=== PATIENT | male | born 1985 | race Caucasian/White ===

== ENCOUNTER 2020-06-06 00:34 | Observation (INO) | payer OTHER ==
[2020-06-06] MEDS ORDERED: IBUPROFEN 800 MG TAB PO STA (01:00)
[2020-06-06 01:02] LABS: Basophils # (A) 0.1 k/uL (0-0.2); Basophils % (A) 1 %; Eosinophils # (A) 0.7 k/uL (0-0.7); Eosinophils % (A) 7 %; HCT 42.1 % (39.0-53.0); HGB 14.3 gm/dL (13.0-17.5); Lymphocytes # (A) 2.6 k/uL (1.0-4.8); Lymphocytes % (A) 29 %; MCH 30.8 pg (25.0-35.0); MCV 90.7 fL (80.0-100.0); Mean Platelet Volume 7.8; Monocytes # (A) 0.5 k/uL (0-1.0); Monocytes % (A) 6 %; Neutrophils # (A) 4.9 k/uL (1.3-7.7); Neutrophils % (A) 55 %; Platelet Count 253 k/uL (150-450); RBC 4.64 m/uL (4.30-5.90); RDW 12.9 % (11.5-15.5)
--- NOTE | 2020-06-06 01:05 | ED ---
Chest Pain HPI - General Chief Complaint: Chest Pain Stated Complaint: Chest Pain Time Seen by Provider: 06/06/20 00:45 Source: patient, EMS Mode of arrival: EMS - History of Present Illness Initial Comments: This patient is 34-year-old man who comes to be evaluated for left-sided chest pain that started in the afternoon possibly early evening. He states that it is a squeezing, was moderate intensity. The pain began to radiate to his left bicep area and then the staff at [facility] called EMS to have him transported here. He had been given aspirin. When EMS gave nitroglycerin, the chest pain subsided. Patient states he is currently symptom-free. No associated symptoms. He had not noted worsening factors. Patient smokes approximately half pack of cigarettes per day. There is family cardiac history. He has not had previous cardiac workup. MD Complaint: chest pain Onset/Timin -: hour(s) Onset: during rest Pain Location: left chest Pain Radiation: LUE Severity: moderate Quality: other (Squeezing) Consistency: constant Improves With: nitroglycerin Worsens With: nothing Treatments Prior to Arrival: aspirin, nitroglycerin, oxygen - Related Data Allergies Allergy/AdvReac Type Severity Reaction Status Date / Time No Known Allergies Allergy Verified 06/06/20 00:43 Review of Systems ROS Statement: Those systems with pertinent positive or pertinent negative responses have been documented in the HPI. ROS Other: All systems not noted in ROS Statement are negative. Constitutional: Denies: fever, chills Respiratory: Denies: cough, dyspnea Cardiovascular: Reports: chest pain. Denies: palpitations, orthopnea, edema, syncope Gastrointestinal: Denies: abdominal pain, nausea, vomiting, diarrhea Genitourinary: Denies: dysuria, hematuria Musculoskeletal: Denies: back pain Skin: Denies: rash Neurological: Denies: headache, weakness, numbness EKG Findings - EKG Results: EKG: interpreted by MARGUERITE WNL, sinus rhythm (Rate 77 bpm), normal axis, normal QRS, normal ST/T, no acute changes - NH, Pacemaker, Normal: Normal tracing: normal tracing Past Medical History Past Medical History: Hypertension, Seizure Disorder History of Any Multi-Drug Resistant Organisms: None Reported Past Surgical History: Orthopedic Surgery Past Psychological History: Anxiety, Depression, PTSD Smoking Status: Current every day smoker Past Alcohol Use History: Abuse, Daily, Heavy Past Drug Use History: Cocaine, Marijuana General Exam Limitations: no limitations, language barrier General appearance: alert, in no apparent distress Head exam: Present: atraumatic, normocephalic Eye exam: Present: normal appearance. Absent: scleral icterus, conjunctival injection ENT exam: Present: normal oropharynx Neck exam: Present: normal inspection Respiratory exam: Present: normal lung sounds bilaterally. Absent: respiratory distress, wheezes, rales, rhonchi, stridor Cardiovascular Exam: Present: regular rate, normal rhythm, normal heart sounds. Absent: systolic murmur, diastolic murmur, rubs, gallop GI/Abdominal exam: Present: soft. Absent: distended, tenderness, guarding, rebound, rigid, mass Extremities exam: Present: normal inspection, normal capillary refill. Absent: pedal edema, calf tenderness Back exam: Present: normal inspection Neurological exam: Present: alert Skin exam: Present: warm, dry, intact, normal color. Absent: rash Course Vital Signs 06/06/20 06/06/20 06/06/20 00:35 00:42 01:07 Temperature 98.2 F Pulse Rate 71 71 Pulse Rate [ 76 Chemical Dependency Therapist ] Respiratory 18 18 Rate Blood Pressure 98/73 117/63 Blood Pressure [Right Arm] O2 Sat by Pulse 93 L 96 Oximetry 06/06/20 06/06/20 06/06/20 01:45 02:17 02:40 Temperature 97.6 F Pulse Rate 66 Pulse Rate [ 65 65 Chemical Dependency Therapist ] Respiratory 18 16 16 Rate Blood Pressure 107/69 Blood Pressure 111/62 [Right Arm] O2 Sat by Pulse 98 96 Oximetry Chest Pain MDM - MDM This patient is 34-year-old man presenting with chest pain, relieved with nitroglycerin. The patient does have smoking and family history risk factors. No previous cardiac workup. Discussed further with patient, and will admit for telemetry monitoring, serial cardiac enzymes, cardiology consultation. The patient is symptom-free in the emergency department. Disposition Clinical Impression: Chest pain Disposition: ADMITTED IP TO THIS HOSP Condition: Good Instructions (If sedation given, give patient instructions): Chest Pain (ED) Is patient prescribed a controlled substance at d/c from ED?: No Referrals: Nonstaff,Physician [Primary Care Provider] - 1-2 days
[2020-06-06 01:14] LABS: INR 0.9 (<1.2); Partial Thromboplastin Time 24.4 sec (22.0-30.0); Prothrombin Time 10.2 sec (9.0-12.0)
[2020-06-06 01:24] LABS: ALT 53 U/L (4-49); AST 35 U/L (17-59); African American GFR (CKD) >90 (>60 ml/min/1.73 sqM); Albumin 4.1 g/dL (3.5-5.0); Alkaline Phosphatase 49 U/L (38-126); Anion Gap 8 mmol/L; Blood Urea Nitrogen 20 mg/dL (9-20); Calcium 9.8 mg/dL (8.4-10.2); Carbon Dioxide 24 mmol/L (22-30); Chloride 105 mmol/L (98-107); Glucose 100 mg/dL (74-99); Magnesium 1.7 mg/dL (1.6-2.3); Non-African American GFR(CKD) >90 (>60 ml/min/1.73 sqM); Potassium 4.6 mmol/L (3.5-5.1); Sodium 137 mmol/L (137-145); Total Bilirubin 0.3 mg/dL (0.2-1.3); Total Protein 6.9 g/dL (6.3-8.2)
--- NOTE | 2020-06-06 01:41 | XR ---
EXAM: XR Chest, 2 Views CLINICAL HISTORY: ITS.REASON XR Reason: Chest Pain TECHNIQUE: Frontal and lateral views of the chest. COMPARISON: No relevant prior studies available. FINDINGS: Lungs: Unremarkable. No consolidation. Pleural space: Unremarkable. No pneumothorax. Heart: Unremarkable. No cardiomegaly. Mediastinum: Unremarkable. Bones/joints: Unremarkable. IMPRESSION: No acute cardiopulmonary process is identified.
[2020-06-06] MEDS ORDERED: ACETAMINOPHEN TAB 325 MG TAB PO PRN (01:50)
[2020-06-06] MEDS ORDERED: NITROGLYCERIN SL TABS 0.4 MG TAB SUBLINGUAL PRN (01:50)
[2020-06-06 02:39] VITALS: RESP 16
--- NOTE | 2020-06-06 10:59 | P.CRDCN ---
History of Present Illness Consult date: 06/06/20 History of present illness: This is a 34-year-old gentleman who was transferred from [facility] because of chest pain. Patient has history of alcoholism and drug abuse. Patient's pain is felt like soreness and tightness across the chest. He does increase on deep breathing and also movements of the chest. Today patient is not having that much pain. His cardiac enzymes are negative. His EKG is normal. Patient has history of hypertension and seizure disorder. He does use cocaine and marijuana. His lungs are clear. Heart is regular. His chest pains appear to be atypical. Patient is going to be evaluated by stress echocardiogram. If that is negative patient could be discharged home Past Medical History Past Medical History: Hypertension, Seizure Disorder History of Any Multi-Drug Resistant Organisms: None Reported Past Surgical History: Orthopedic Surgery Past Psychological History: Anxiety, Depression, PTSD Smoking Status: Current every day smoker Past Alcohol Use History: Abuse, Daily, Heavy Past Drug Use History: Cocaine, Marijuana Medications and Allergies Home Medications Medication Instructions Recorded Confirmed Type ARIPiprazole [Abilify] 15 mg PO DAILY@0600 06/06/20 06/06/20 History Acetaminophen [Tylenol 8 Hour] 650 mg PO Q4H PRN MDD 6 tabs 06/06/20 06/06/20 History Umesh/Mag/Zinc Tablet 2 tab PO TID PRN 06/06/20 06/06/20 History Citalopram Hydrobromide [CeleXA] 20 mg PO DAILY@0600 06/06/20 06/06/20 History Folic Acid 1 mg PO DAILY@0600 06/06/20 06/06/20 History Ibuprofen [Motrin] 600 mg PO Q6HR PRN 06/06/20 06/06/20 History Magnesium Oxide [Mag-Ox] 800 mg PO DAILY@0600 06/06/20 06/06/20 History Metoprolol Succinate (ER) [Toprol 25 mg PO DAILY@59906/06/20 06/06/20 History Xl] cloNIDine HCL [Catapres] 0.1 - 0.3 mg PO Q4H PRN 06/06/20 06/06/20 History levETIRAcetam [Keppra] 1,000 mg PO BID@0600,2100 06/06/20 06/06/20 History ondansetron HCL [Zofran] 8 mg PO Q6H PRN 06/06/20 06/06/20 History traZODone HCL 150 mg PO HS 06/06/20 06/06/20 History Allergies Allergy/AdvReac Type Severity Reaction Status Date / Time No Known Allergies Allergy Verified 06/06/20 06:34 Physical Exam Vitals: Vital Signs Temp Pulse Pulse Resp BP BP Pulse Ox 06/06/20 07:39 97.7 F 69 16 115/74 96 06/06/20 02:40 65 16 06/06/20 02:17 97.6 F 65 16 111/62 96 06/06/20 01:45 66 18 107/69 98 06/06/20 01:07 71 18 117/63 96 06/06/20 00:42 76 06/06/20 00:35 98.2 F 71 18 98/73 93 L Intake and Output 06/05/20 06/06/20 06/06/20 22:59 06:59 14:59 Other: Voiding Method Toilet # Voids 1 Weight 90.718 kg Results 06/06/20 00:54 06/06/20 00:54 Cardiac Enzymes 06/06/20 06/06/20 06/06/20 Range/Units 00:54 00:54 04:51 AST 35 (17-59) U/L Troponin I <0.012 <0.012 (0.000-0.034) ng/mL 06/06/20 Range/Units 06:42 AST (17-59) U/L Troponin I <0.012 (0.000-0.034) ng/mL Coagulation 06/06/20 Range/Units 00:54 PT 10.2 (9.0-12.0) sec APTT 24.4 (22.0-30.0) sec CBC 06/06/20 Range/Units 00:54 WBC 9.0 (3.8-10.6) k/uL RBC 4.64 (4.30-5.90) m/uL Hgb 14.3 (13.0-17.5) gm/dL Hct 42.1 (39.0-53.0) % Plt Count 253 (150-450) k/uL Comprehensive Metabolic Panel 06/06/20 Range/Units 00:54 Sodium 137 (137-145) mmol/L Potassium 4.6 (3.5-5.1) mmol/L Chloride 105 (98-107) mmol/L Carbon Dioxide 24 (22-30) mmol/L BUN 20 (9-20) mg/dL Creatinine 0.75 (0.66-1.25) mg/dL Glucose 100 H (74-99) mg/dL Calcium 9.8 (8.4-10.2) mg/dL AST 35 (17-59) U/L ALT 53 H (4-49) U/L Alkaline Phosphatase 49 (38-126) U/L Total Protein 6.9 (6.3-8.2) g/dL Albumin 4.1 (3.5-5.0) g/dL Current Medications Generic Name Dose Route Start Last Admin Trade Name Freq PRN Reason Stop Dose Admin Acetaminophen 650 mg 06/06/20 01:50 Acetaminophen Tab 325 Mg Tab PO Q4HR PRN Pain Nitroglycerin 0.4 mg 06/06/20 01:50 Nitroglycerin Sl Tabs 0.4 Mg Tab SUBLINGUAL Q5M PRN Chest Pain Sodium Chloride 10 ml 06/06/20 09:00 06/06/20 09:29 Sodium Chloride 0.9% Flush 10 Ml Syringe IV 10 ml BID IBIS Administration Intake and Output 06/05/20 06/06/20 06/06/20 22:59 06:59 14:59 Other: Voiding Method Toilet # Voids 1 Weight 90.718 kg 06/06/20 00:54 06/06/20 00:54
--- NOTE | 2020-06-06 11:00 | ECHOF ---
Referral Reason:chest pain MEASUREMENTS -------- HEIGHT: 180.3 cm WEIGHT: 90.7 kg BP: 136/56 RVIDd: 3.4 cm (< 3.3) IVSd: 1.3 cm (0.6 - 1.1) LVIDd: 4.0 cm (3.9 - 5.3) LVPWd: 1.4 cm (0.6 - 1.1) IVSs: 1.6 cm LVIDs: 2.4 cm LVPWs: 2.0 cm LAESV Index (A-L): 22.20 ml/m Ao Diam: 3.7 cm (2.0 - 3.7) AV Cusp: 2.6 cm (1.5 - 2.6) MV EXCURSION: 18.450 mm (> 18.000) MV EF SLOPE: 80 mm/s (70 - 150) EPSS: 0.5 cm MV E Robin: 0.74 m/s MV DecT: 257 ms MV A Robin: 0.60 m/s MV E/A Ratio: 1.23 RAP: 5.00 mmHg RVSP: 30.72 mmHg FINDINGS -------- Sinus rhythm. This was a technically good study. The left ventricular size is normal. There is mild concentric left ventricular hypertrophy. Overa ll left ventricular systolic function is normal with, an EF between 55 - 60 %. The diastolic fillin g pattern is normal for the age of the patient {E/E'}. The right ventricle is mildly enlarged. Normal LA size by volume 22+/-6 ml/m2. The right atrial size is normal. Interatrial and interventricular septum intact. The aortic valve is trileaflet and appears structurally normal. There is no evidence of aortic regu rgitation. There is no evidence of aortic stenosis. No mitral regurgitation. Mild tricuspid regurgitation present. There is no evidence of pulmonary hypertension. The right v entricular systolic pressure, as measured by Doppler, is 30.72mmHg. There is no pulmonic regurgitation present. The aortic root size is normal. Normal inferior vena cava with normal inspiratory collapse consistent with estimated right atrial pre ssure of 5 mmHg. There is no pericardial effusion. CONCLUSIONS -------- 1. The left ventricular size is normal. 2. There is mild concentric left ventricular hypertrophy. 3. Overall left ventricular systolic function is normal with, an EF between 55 - 60 %. 4. The diastolic filling pattern is normal for the age of the patient {E/E'} 5. The right ventricle is mildly enlarged. 6. Mild tricuspid regurgitation present. POLYMER CHEMIST: Maria Luisa Joshi RDCS
--- NOTE | 2020-06-06 14:16 | P.STRESS ---
- Stress Test Note Stress Test Results/Findings: Exam Performed: stress echo exercise Exam Date: 06/06/20 Reason for Exam: CHEST PAIN Height: 5 ft 11 in Weight: 90.72 kg Protocol: MILES Stage: 4 Duration of Exercise: 10:01 Resting Heart Rate: 76 Resting Blood Pressure: 132/85 Maximum Achieved Heart Rate: 170 Maximum Achieved Blood Pressure: 239/97 85% PMHR: 156 100% PMHR: 184 METS: 11.5 Technologist Comment: Stress Test Results/Findings: This is a 34-year-old gentleman was admitted to the hospital with chest pain and shortness of breath. He has history of hypertension and smoking. Stress data: Baseline EKG showed sinus rhythm with normal MS and QRS duration. Blood pressure at rest is 130/85, pulse rate of 76. Patient walked on the Miles protocol for 10 minutes achieving a maximum heart rate of 170 with blood pressure 239/97. EKGs taken during and after exercise did not reveal any changes of ischemia. Patient did not experience any chest pain. Echo data: Baseline echo images showed normal wall motion and thickening. Exercise echo images showed augmentation of wall motion and thickening in all segments. Final impression: #1. Negative stress test #2. Negative stress echo.
[2020-06-06 15:00] VITALS: BP 141/94; PULSE 76; TEMP 98.4
--- NOTE | 2020-06-06 15:59 | ECHOS ---
Stress Test Results/Findings: Exam Performed: stress echo exercise Exam Date: 06/06/20 Reason for Exam: CHEST PAIN Height: 5 ft 11 in Weight: 90.72 kg Protocol: MILES Stage: 4 Duration of Exercise: 10:01 Resting Heart Rate: 76 Resting Blood Pressure: 132/85 Maximum Achieved Heart Rate: 170 Maximum Achieved Blood Pressure: 239/97 85% PMHR: 156 100% PMHR: 184 METS: 11.5 Technologist Comment: Stress Test Results/Findings: This is a 34-year-old gentleman was admitted to the hospital with chest pain and shortness of breath. He has history of hypertension and smoking. Stress data: Baseline EKG showed sinus rhythm with normal CA and QRS duration. Blood pressure at rest is 130/85, pulse rate of 76. Patient walked on the Miles protocol for 10 minutes achieving a maximum heart rate of 170 with blood pressure 239/97. EKGs taken during and after exercise did not reveal any changes of ischemia. Patient did not experience any chest pain. Echo data: Baseline echo images showed normal wall motion and thickening. Exercise echo images showed augmentation of wall motion and thickening in all segments. Final impression: #1. Negative stress test #2. Negative stress echo. JOHN
--- NOTE | 2020-06-06 16:36 | HP ---
HISTORY AND PHYSICAL COMBINED HISTORY AND PHYSICAL AND DISCHARGE SUMMARY: CHIEF COMPLAINT: Chest pain. HISTORY OF PRESENT ILLNESS: This 34-year-old gentleman with a past medical history of hypertension, seizure disorder, anxiety, depression, PTSD, history of nicotine dependence, history of heavy alcohol abuse, being followed by a physician in [place], was admitted to [facility] for rehab. The patient had sudden onset of severe chest pain yesterday evening, about 10/10 in intensity, felt in the anterior part of the chest, which was squeezing in character and radiating to the left biceps. EMS was called and the patient was transferred to [facility] for further evaluation and treatment. The initial EKG showed no acute changes. Myocardial infarction was ruled out. Cardiology saw the patient. Troponins are negative. Cardiology also performed a stress test. The stress test was found to be negative. Apparently the patient will be sent back to [facility] for continued rehabilitation at this time. There is no history of any fever, rigor or chills. No history of headache, loss of consciousness, seizures. No history of COVID-19 infection. PAST MEDICAL HISTORY: Hypertension, seizure disorder, anxiety, depression, PTSD. HOME MEDICATIONS: Trazodone, Zofran, Keppra, Catapres, Toprol-XL, Motrin, folic acid, Celexa, Tylenol, Abilify. ALLERGIES: NONE. FAMILY HISTORY: No history of heart disease or strokes in the family. SOCIAL HISTORY: Polysubstance abuse, including smoking, cocaine and marijuana. REVIEW OF SYSTEMS: ENT: No diminished hearing. No diminished vision. CARDIOVASCULAR SYSTEM: As mentioned earlier. RESPIRATORY SYSTEM: As mentioned earlier. GI: No nausea, vomiting. : No dysuria or retention. NERVOUS SYSTEM: No numbness, weakness. ALLERGY/IMMUNOLOGY: No asthma, hayfever. MUSCULOSKELETAL: As mentioned earlier. HEMATOLOGY/ONCOLOGY: No history of anemia. ENDOCRINE: No history of diabetes, hypothyroidism. CONSTITUTIONAL: As mentioned earlier. DERMATOLOGY: Negative. RHEUMATOLOGY: Negative. PSYCHIATRY: As mentioned earlier. PHYSICAL EXAMINATION: Patient alert and oriented x3. Pulse 76, blood pressure 141/94, respiration 16, temperature 98.4, pulse ox 97% on room air. HEENT: Conjunctivae normal. NECK: No jugular venous distention. CARDIOVASCULAR SYSTEM: S1, S2 muffled. RESPIRATORY SYSTEM: Breath sounds diminished at the bases. A few scattered rhonchi and crackles. ABDOMEN: Soft, non-tender. No mass palpable. LEGS: No edema. No swelling. NERVOUS SYSTEM: Higher functions as mentioned earlier. Moves all 4 limbs. No focal motor or sensory deficit. LYMPHATICS: No lymph node palpable in neck, axillae or groin. SKIN: No ulcer, rash, bleeding. JOINTS: No active deforming arthropathy. LABS: CBC within normal limits. Glucose 100, ALT 53. ASSESSMENT: 1. Chest pain, possibly musculoskeletal. Myocardial infarction ruled out. Negative stress test. 2. Elevated ALT. 3. History of hypertension. 4. Seizure disorder. 5. Anxiety. 6. Depression. 7. Post-traumatic stress disorder. 8. History of nicotine dependence. 9. History of polysubstance abuse. RECOMMENDATIONS AND DISCUSSION: In this 34-year-old gentleman who presented with multiple medical issues, as listed above, at this time myocardial infarction has been ruled out and the stress test was negative also. At this time I would recommend continuing with symptomatic treatment. Also continue with rehab. The patient is cleared medically to continue the rehab. Otherwise, recommend close followup with Cardiology, as mentioned earlier. Also recommend close followup with the primary physician after discharge from [facility]. Please see the medication reconciliation sheet for list of medications. MMODL / IJN: [id number] /
[2020-06-07] MEDS ORDERED: ASPIRIN 325 MG TAB PO SCH (09:00)
== END 2020-06-06 17:37 | disposition other institution (70) ==
LOC: EC 00:34 → 6NMEDSUR 01:50
PROVIDERS: ADMIT Internal Medicine; ATTEND Internal Medicine
DX: R07.89 Other chest pain (principal); R74.01 Elevation of levels of liver transaminase levels; I10 Essential (primary) hypertension; F17.210 Nicotine dependence, cigarettes, uncomplicated; G40.909 Epilepsy, unspecified, not intractable, without status epilepticus; F32.9 Major depressive disorder, single episode, unspecified; F43.10 Post-traumatic stress disorder, unspecified; F41.9 Anxiety disorder, unspecified; F19.10 Other psychoactive substance abuse, uncomplicated; F10.10 Alcohol abuse, uncomplicated; F12.10 Cannabis abuse, uncomplicated; F14.10 Cocaine abuse, uncomplicated; Z79.899 Other long term (current) drug therapy; Z79.1 Long term (current) use of non-steroidal anti-inflammatories (NSAID); Z82.49 Family history of ischemic heart disease and other diseases of the circulatory system
CPT/HCPCS: 99285; 36415; 93005; 93306; 93351; 80053; 83735; 84484; 85025; 85610; 85730; 71046; G0378